=== PATIENT | male | born 1940 | race Caucasian/White ===

== ENCOUNTER 2016-08-26 05:14 | Day surgery (SDC) ==
[2016-08-26] MEDS ORDERED: LR 1,000 ML ONE (06:02)
[2016-08-26] MEDS ORDERED: MYLICON DROPS (DOSE) MISC ONE (07:58)
[2016-08-26] MEDS ORDERED: DIPRIVAN 1% ONE (09:07)
[2016-08-26 09:40] VITALS: BP 142/74
[2016-08-26] MEDS ORDERED: XYLOCAINE-MPF 2% ONE (09:42)
[2016-08-26] MEDS ORDERED: ROBINUL ONE (09:42)
--- NOTE | 2016-09-01 03:34 | OPERATIVE NOTE ---
PROCEDURE DATE: 08/26/2016 REFERRING PHYSICIAN: Arben Gallegos MD. INDICATION FOR PROCEDURE: 1. Dysphagia. 2. Nausea. 3. Iron-deficiency anemia. PROCEDURE PERFORMED: Esophagogastroduodenoscopy. CONSENT: Informed consent was obtained from the patient prior to the procedure. The risks, benefits, and alternatives were discussed with the patient. Multiple questions were answered. MEDICATIONS: The patient received monitored anesthesia care. PERFORMING PHYSICIAN: Alea Hoffmann MD. ASSISTANTS: 1. [facility] 2. Jessa Mathias RN. 3. Bettie Domingo CRNA. 4. Neri Rodriguez MD (anesthesia). 5. Observer, Floresita Del Rosario, executive director of nursing. COMPLICATIONS: There were no complications. ESTIMATED BLOOD LOSS: Less than 1 mL. SPECIMENS REMOVED: Gastric biopsy. FINDINGS: After sedation was achieved, the upper endoscope was inserted to the 2nd portion of the duodenum. The hypopharynx appeared endoscopically normal. The tubular esophagus was normal to 39 cm. Beginning at 39 cm, there were multiple streaks of erosions and erythema consistent with grade C erosive esophagitis. There was a superficial ulcer with a whitish base at 39 cm. The GE junction was measured at 40 cm from the incisors. In the gastric lumen, there was erosive gastritis. The pylorus appeared endoscopically normal. The 1st and 2nd portion of the duodenum appeared endoscopically normal. Upon withdrawal of the scope back into the gastric lumen, the fundus appeared normal on retroflexed except for the aforementioned gastritis. Biopsies were taken from the gastric lumen and the lumen was decompressed. The scope was then removed without incident. IMPRESSION: 1. Distal esophageal ulcer. 2. Grade C erosive esophagitis. 3. Erosive gastritis. RECOMMENDATION: 1. Await biopsy results. 2. Begin Prilosec 40 mg daily. 3. Begin Carafate 1 g p.o. 4 times a day for 12 weeks, then stop. 4. We will proceed with a colonoscopy as previously scheduled. 5. The date to resume her Plavix will be based on her colonoscopy findings. 6. We will have the patient return to clinic in 4-6 weeks to assess interval progress.
--- NOTE | 2016-09-01 03:40 | OPERATIVE NOTE ---
PROCEDURE DATE: 08/26/2016 REFERRING PHYSICIAN: Arben Gallegos MD. INDICATION FOR PROCEDURE: 1. Rectal bleeding. 2. Iron deficiency anemia. PROCEDURE PERFORMED: Colonoscopy with polypectomy. CONSENT: Informed consent was obtained from the patient prior to the procedure. The risks, benefits, and alternatives were discussed. MEDICATION: The patient received monitored anesthesia care. PERFORMING PHYSICIAN: Alea Hoffmann MD. ASSISTANTS: 1. [facility] 2. Jessa Mathias RN. 3. Bettie Domingo CRNA. 4. Neri Rodriguez MD (anesthesia). 5. Observer, Floresita Del Rosario, director school of nursing. COMPLICATIONS: There were no complications. ESTIMATED BLOOD LOSS: Less than 1 mL. SPECIMENS REMOVED: 1. Cecal polyp x1. 2. Transverse colon polyp x2. 3. Descending colon polyp. 4. Rectal polyp x3. CECAL INTUBATION TIME: 23 minutes. He required position changes and counterpressure. WITHDRAWAL TIME: 21 minutes. PREP QUALITY: Fair. FINDINGS: After the EGD was performed, the pediatric colonoscope was inserted to the terminal ileum. Terminal ileum, ileocecal valve, and the cecal mucosa appeared normal. There was a 5 mm sessile cecal polyp that was removed by snare cautery. Upon withdrawal, the ascending colon appeared normal. In the transverse colon, there were 2 polyps that ranged in size from 5-10 mm that were removed using snare cautery. In the descending colon, there was a 5 mm sessile polyp that was removed by snare cautery. In the upper rectum, there were grade 1 internal hemorrhoids. In the rectal body, there were 3 rectal polyps that ranged in size from 5-10 mm that were removed by snare. In addition, there were an additional 5 polyps that ranged in size from 3-5 mm that were removed by snare cautery. 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 It should be noted that the colonic mucosa was grossly normal except for the aforementioned polyps. 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 After the exam was complete, the lumen was decompressed and the scope was removed without incident. RECOMMENDATIONS: 1. Await biopsy results. 2. The bleeding was most likely secondary to hemorrhoidal bleeding. There were no other actively bleeding lesions. The patient will begin a trial of [id number] Preparation-H hemorrhoidal suppositories. 3. Begin a high-fiber diet. 4. Hold Plavix for 3 days and then resume on 08/30/2016. 5. We will have the patient return to clinic in 4-6 weeks to assess interval progress.
== END 2016-08-26 09:51 | disposition home or self-care (01) ==
LOC: ENDO 05:14
PROVIDERS: ATTEND Internal Medicine Gastroenterology
DX: D12.0 Benign neoplasm of cecum (principal); K29.50 Unspecified chronic gastritis without bleeding; D12.3 Benign neoplasm of transverse colon; D12.4 Benign neoplasm of descending colon; K62.1 Rectal polyp; D50.9 Iron deficiency anemia, unspecified; I10 Essential (primary) hypertension
CPT/HCPCS: 88305; 88312; J7120